=== PATIENT | female | born 1990 | race American Indian/Alaskan Native ===

== ENCOUNTER 2020-02-13 12:15 | Emergency (ER) | payer MEDICAID ==
--- NOTE | 2020-02-13 12:21 | Emergency Department Report ---
Blank Doc - Documentation Documentation: 29-year-old female that presents with depression. Denies any SI/HI. This initial assessment/diagnostic orders/clinical plan/treatment(s) is/are subject to change based on patient's health status, clinical progression and re- assessment by fellow clinical providers in the ED. Further treatment and workup at subsequent clinical providers discretion. Patient/guardians urged not to elope from the ED as their condition may be serious if not clinically assessed and managed. Initial orders include: 1- Patient sent to MAIN ED for further evaluation and treatment 2- earth science faculty member was notified to have patient be brought back [facility]. 3- RN was notified to keep patient as close range and observation until room available
[2020-02-13] MEDS ORDERED: cloNIDine 0.2 MG TAB PO ONE (12:41)
[2020-02-13 12:51] LABS: Basophils # (Auto) 0.1 K/mm3 (0.0-0.1); Basophils % (Auto) 0.7 % (0.0-1.8); Eosinophils % (Auto) 0.1 % (0.0-4.3); Hematocrit 43.2 % (30.3-42.9); Hemoglobin 14.4 gm/dl (10.1-14.3); Lymphocytes # (Auto) 2.2 K/mm3 (1.2-5.4); Lymphocytes % (Auto) 13.8 % (13.4-35.0); Mean Corpuscular HGB Conc 33 % (30-34); Mean Corpuscular Volume 84 fl (79-97); Monocytes # (Auto) 0.9 K/mm3 (0.0-0.8); Monocytes % (Auto) 5.6 % (0.0-7.3); Platelet Count 282 K/mm3 (140-440); Red Blood Count 5.15 M/mm3 (3.65-5.03); Red Cell Distribution Width 14.5 % (13.2-15.2)
--- NOTE | 2020-02-13 12:55 | Emergency Department Report ---
HPI - General Chief Complaint: Psych Time Seen by Provider: 02/13/20 12:21 - HPI HPI: Room 19 Patient is a 29-year-old female present with a chief complaint of sadness. Patient states she has felt intermittently sad for the past 8 years. Patient states her grandmother recently (February 02) and this brought on her current sadness. Patient denies suicidal or homicidal ideation. Patient denies visual or auditory hallucinations. Patient states she has not been sleeping since February 02. Patient states her mother made her come to the hospital for evaluation. Patient states she was on blood pressure medication but stopped taking it secondary to side effects 2 years ago ED Past Medical Hx - Past Medical History Previous Medical History?: Yes Hx Hypertension: Yes - Surgical History Past Surgical History?: Yes Additional Surgical History: tubal ligation - Family History Family history: no significant - Social History Smoking Status: Current Every Day Smoker (1 pack/day) Substance Use Type: None (Denies illicit drug use), Alcohol (Occasional) - Medications Home Medications: Home Medications Medication Instructions Recorded Confirmed Last Taken Type Cyclobenzaprine [Flexeril] 10 mg PO TID PRN #15 tablet 08/07/15 Unknown Rx traMADoL [Ultram] 50 mg PO Q6HR PRN #20 tablet 08/07/15 Unknown Rx amLODIPine 5 mg PO DAILY #90 tab 02/13/20 Unknown Rx ED Review of Systems ROS: Stated complaint: MENTAL BREAKDOWN Other details as noted in HPI Constitutional: no symptoms reported Respiratory: no symptoms reported Endocrine: no symptoms reported Psychiatric: denies: auditory hallucinations, visual hallucinations, homicidal thoughts, suicidal thoughts Physical Exam - Physical Exam Vital Signs: Vital Signs 02/13/20 12:19 Temperature 99.2 F Pulse Rate 107 H Respiratory 18 Rate Blood Pressure 232/113 O2 Sat by Pulse 100 Oximetry Physical Exam: GENERAL: The patient is well-developed well-nourished female sitting on stretcher appearing tearful. [] HEENT: Normocephalic. Atraumatic. Extraocular motions are intact. Patient has moist mucous membranes. NECK: Supple. Trachea midline CHEST/LUNGS: Clear to auscultation. There is no respiratory distress noted. HEART/CARDIOVASCULAR: Regular. There is no tachycardia. There is no gallop rub or murmur. ABDOMEN: Abdomen is soft, nontender. Patient has normal bowel sounds. There is no abdominal distention. SKIN: There is no rash. There is no edema. There is no diaphoresis. NEURO: The patient is awake, alert, and oriented. The patient is cooperative. The patient has no focal neurologic deficits. The patient has normal speech MUSCULOSKELETAL: There is no evidence of acute injury. ED Course Vital Signs 02/13/20 12:19 Temperature 99.2 F Pulse Rate 107 H Respiratory 18 Rate Blood Pressure 232/113 O2 Sat by Pulse 100 Oximetry ED Medical Decision Making - Lab Data Result diagrams: 02/13/20 12:38 02/13/20 12:38 Laboratory Tests 02/13/20 02/13/20 02/13/20 12:38 12:38 12:38 WBC 16.0 H RBC 5.15 H Hgb 14.4 H Hct 43.2 H MCV 84 MCH 28 MCHC 33 RDW 14.5 Plt Count 282 Lymph % (Auto) 13.8 [place] % (Auto) 5.6 Eos % (Auto) 0.1 Baso % (Auto) 0.7 Lymph # (Auto) 2.2 [place] # (Auto) 0.9 H Eos # (Auto) 0.0 Baso # (Auto) 0.1 Seg Neutrophils % 79.8 H Seg Neutrophils # 12.8 H Sodium 137 Potassium 3.8 Chloride 100.7 Carbon Dioxide 26 Anion Gap 14 BUN 12 Creatinine 0.8 Estimated GFR > 60 BUN/Creatinine Ratio 15 Glucose 100 Calcium 9.3 Urine Color Urine Turbidity Urine pH Ur Specific [place] Urine Protein Urine Glucose (UA) Urine Ketones Urine Blood Urine Nitrite Urine Bilirubin Urine Urobilinogen Ur Leukocyte Esterase Urine WBC (Auto) Urine RBC (Auto) U Epithel Cells (Auto) Urine Bacteria (Auto) Urine Mucus Urine HCG, Qual Salicylates < 0.3 L Urine Opiates Screen Urine Methadone Screen Acetaminophen Ur Barbiturates Screen Ur Phencyclidine Scrn Ur Amphetamines Screen U Benzodiazepines Scrn Urine Cocaine Screen U Marijuana (THC) Screen Drugs of Abuse Note Plasma/Serum Alcohol 02/13/20 02/13/20 02/13/20 12:38 12:38 Unknown WBC RBC Hgb Hct MCV MCH MCHC RDW Plt Count Lymph % (Auto) [place] % (Auto) Eos % (Auto) Baso % (Auto) Lymph # (Auto) [place] # (Auto) Eos # (Auto) Baso # (Auto) Seg Neutrophils % Seg Neutrophils # Sodium Potassium Chloride Carbon Dioxide Anion Gap BUN Creatinine Estimated GFR BUN/Creatinine Ratio Glucose Calcium Urine Color Yellow Urine Turbidity Cloudy Urine pH 6.0 Ur Specific [place] 1.021 Urine Protein <15 mg/dl Urine Glucose (UA) Neg Urine Ketones Tr Urine Blood Neg Urine Nitrite Neg Urine Bilirubin Neg Urine Urobilinogen < 2.0 Ur Leukocyte Esterase Lg Urine WBC (Auto) 7.0 H Urine RBC (Auto) 5.0 U Epithel Cells (Auto) 28.0 H Urine Bacteria (Auto) 1+ Urine Mucus 1+ Urine HCG, Qual Negative Salicylates Urine Opiates Screen Urine Methadone Screen Acetaminophen 5.0 L Ur Barbiturates Screen Ur Phencyclidine Scrn Ur Amphetamines Screen U Benzodiazepines Scrn Urine Cocaine Screen U Marijuana (THC) Screen Drugs of Abuse Note Plasma/Serum Alcohol < 0.01 02/13/20 Unknown WBC RBC Hgb Hct MCV MCH MCHC RDW Plt Count Lymph % (Auto) [place] % (Auto) Eos % (Auto) Baso % (Auto) Lymph # (Auto) [place] # (Auto) Eos # (Auto) Baso # (Auto) Seg Neutrophils % Seg Neutrophils # Sodium Potassium Chloride Carbon Dioxide Anion Gap BUN Creatinine Estimated GFR BUN/Creatinine Ratio Glucose Calcium Urine Color Urine Turbidity Urine pH Ur Specific [place] Urine Protein Urine Glucose (UA) Urine Ketones Urine Blood Urine Nitrite Urine Bilirubin Urine Urobilinogen Ur Leukocyte Esterase Urine WBC (Auto) Urine RBC (Auto) U Epithel Cells (Auto) Urine Bacteria (Auto) Urine Mucus Urine HCG, Qual Salicylates Urine Opiates Screen Negative Urine Methadone Screen Negative Acetaminophen Ur Barbiturates Screen Negative Ur Phencyclidine Scrn Negative Ur Amphetamines Screen Negative U Benzodiazepines Scrn Negative Urine Cocaine Screen Negative U Marijuana (THC) Screen Positive Drugs of Abuse Note Disclamer Plasma/Serum Alcohol - Differential Diagnosis Depression, grieving, adjustment disorder, hypertension Critical care attestation.: If time is entered above; I have spent that time in minutes in the direct care of this critically ill patient, excluding procedure time. ED Disposition Clinical Impression: Hypertension, Grieving Disposition: DC-01 TO HOME OR SELFCARE Is pt being admited?: No Does the pt Need Aspirin: No Condition: Stable Instructions: Hypertension (ED) Additional Instructions: Return to the emergency department should you develop worsening symptoms, inability to tolerate food or liquids, high fever or any other concerns Prescriptions: amLODIPine 5 mg PO DAILY #90 tab Referrals: JOSSELIN LEIVA MD [Staff Physician] - 3-5 Days (Dr. Leiva is a primary physician. Please follow-up with him to be established as a patient) Time of Disposition: 15:57
[2020-02-13 13:11] LABS: BUN/Creatinine Ratio 15; Blood Urea Nitrogen 12 mg/dL (7-17); Calcium 9.3 mg/dL (8.4-10.2); Hemolysis Index 23
[2020-02-13 13:27] LABS: Amphetamine Screen,Urine Negative; Benzodiazepines Screen,Urine Negative; Cocaine Screen,Urine Negative; Methadone Screen,Urine Negative; Opiate Screen,Urine Negative
[2020-02-13 13:39] LABS: Cannabinoid Screen,Urine Positive
[2020-02-13 13:57] LABS: Bacteria,Urine 1+ /HPF (Negative); Bilirubin,Urine NEG (Negative); Blood,Urine NEG (Negative); Color,Urine Yellow (Yellow); Mucus,Urine 1+ /HPF; Protein,Urine <15 mg/dL mg/dL (Negative); Urobilinogen,Urine < 2.0 mg/dL (<2.0)
[2020-02-13 13:59] LABS: HCG Qualitative,Urine Negative (Negative)
[2020-02-13 16:19] VITALS: BP 177/96
== END 2020-02-13 16:19 | disposition home or self-care (01) ==
LOC: ED 12:15
DX: F43.21 Adjustment disorder with depressed mood (principal); I10 Essential (primary) hypertension; F17.200 Nicotine dependence, unspecified, uncomplicated; Z98.51 Tubal ligation status; Z79.899 Other long term (current) drug therapy
CPT/HCPCS: 36415; 80048; 80307; 80320; 81001; 81025; 85025; G0480

== ENCOUNTER 2021-12-28 08:12 | Emergency (ER) | payer SELFPAY ==
--- NOTE | 2021-12-28 10:14 | Emergency Department Report ---
ED General Adult HPI - General Chief complaint: Psych Stated complaint: MENTAL BREAKDOWN PUI?: No Time Seen by Provider: 12/28/21 09:38 Source: patient Mode of arrival: Ambulatory Limitations: No Limitations - History of Present Illness Initial comments: This is a 36-year-old female with a past medical history of paranoia, depression who presents with her mother today complaining of having a mental breakdown. Patient's mother states she has been very paranoid stating that the police is out to get her and someone is out to get her. Mom states she is a scattered thought and she is speaking in a scattered manner. Patient denies any suicidal ideation today but states she had thoughts of hurting herself in the past with no plan of action. Patient states that she just needs a medication but cannot recall what medication she is taking. Patient states that she was taking metronidazole for depression. It is unclear if patient knows of medication she is taking. Per medical history last time patient was here was about 2 years ago with the same complaints of having a mental breakdown. Severity scale (0 -10): 0 - Related Data Previous Rx's Medication Instructions Recorded Last Taken Type Cyclobenzaprine [Flexeril] 10 mg PO TID PRN #15 tablet 08/07/15 Unknown Rx traMADoL [Ultram] 50 mg PO Q6HR PRN #20 tablet 08/07/15 Unknown Rx amLODIPine 5 mg PO DAILY #90 tab 02/13/20 Unknown Rx Allergies Allergy/AdvReac Type Severity Reaction Status Date / Time No Known Allergies Allergy Verified 12/28/21 08:31 ED Review of Systems ROS: Stated complaint: MENTAL BREAKDOWN Other details as noted in HPI Comment: All other systems reviewed and negative ED Past Medical Hx - Past Medical History Hx Hypertension: Yes - Surgical History Additional Surgical History: tubal ligation - Social History Smoking Status: Current Every Day Smoker (1 pack/day) Substance Use Type: None (Denies illicit drug use), Alcohol (Occasional) - Medications Home Medications: Home Medications Medication Instructions Recorded Confirmed Last Taken Type Cyclobenzaprine [Flexeril] 10 mg PO TID PRN #15 tablet 08/07/15 Unknown Rx traMADoL [Ultram] 50 mg PO Q6HR PRN #20 tablet 08/07/15 Unknown Rx amLODIPine 5 mg PO DAILY #90 tab 02/13/20 Unknown Rx ED Physical Exam - General Limitations: No Limitations General appearance: alert, in no apparent distress - Head Head exam: Present: atraumatic, normocephalic - Eye Eye exam: Present: normal appearance, PERRL - ENT ENT exam: Present: mucous membranes moist - Neck Neck exam: Present: normal inspection - Respiratory Respiratory exam: Present: normal lung sounds bilaterally. Absent: respiratory distress - Cardiovascular Cardiovascular Exam: Present: regular rate, normal rhythm. Absent: systolic murmur, diastolic murmur, rubs, gallop - GI/Abdominal GI/Abdominal exam: Present: soft, normal bowel sounds - Extremities Exam Extremities exam: Present: normal inspection - Back Exam Back exam: Present: normal inspection - Neurological Exam Neurological exam: Present: alert, oriented X3 - Psychiatric Psychiatric exam: Present: normal affect, normal mood - Skin Skin exam: Present: warm, dry, intact, normal color. Absent: rash ED Course Vital Signs 12/28/21 08:24 Temperature 97.3 F L Pulse Rate 120 H Blood Pressure 153/90 [Right] O2 Sat by Pulse 97 Oximetry ED Medical Decision Making - Lab Data Result diagrams: 12/28/21 11:16 12/28/21 11:16 - Medical Decision Making 31-year-old female presents with paranoia and depression. All labs collected. Patient has leukocytosis. Vital signs are normal. Urinalysis pending. Mental health evaluation/assessment completed and recommending to continue inpatient care. Charge nurse notified. 1013 order set activated. Patient was transferred to the main ED psych . At this time patient is seen and evaluated. Vital signs are normal. Critical care attestation.: If time is entered above; I have spent that time in minutes in the direct care of this critically ill patient, excluding procedure time. ED Disposition Clinical Impression: Paranoid disorder, Suicidal behavior Disposition: 02 SHORT TERM HOSPITAL Is pt being admited?: No Does the pt Need Aspirin: No Referrals: PRIMARY CARE, [Primary Care Provider] - 3-5 Days
[2021-12-28 12:10] LABS: Alanine Aminotransferase 14 units/L (7-56); Albumin 5.6 g/dL (3.9-5); BUN/Creatinine Ratio 11; Blood Urea Nitrogen 11 mg/dL (7-17); Calcium 10.3 mg/dL (8.4-10.2); Hemolysis Index 27
[2021-12-28 12:31] LABS: Basophils # (Auto) 0.1 K/mm3 (0.0-0.1); Basophils % (Auto) 0.5 % (0.0-1.8); Eosinophils % (Auto) 0.1 % (0.0-4.3); Lymphocytes # (Auto) 2.7 K/mm3 (1.2-5.4); Lymphocytes % (Auto) 15.4 % (13.4-35.0); Mean Corpuscular HGB Conc 33 % (30-34); Mean Corpuscular Volume 84 fl (79-97); Monocytes # (Auto) 1.3 K/mm3 (0.0-0.8); Monocytes % (Auto) 7.4 % (0.0-7.3); Platelet Count 329 K/mm3 (140-440); Red Blood Count 6.19 M/mm3 (3.65-5.03); Red Cell Distribution Width 14.7 % (13.2-15.2)
[2021-12-28] MEDS ORDERED: LORazepam 1 MG TAB PO ONE (22:31)
[2021-12-28] MEDS ORDERED: METOPROLOL TARTRATE 50 MG TAB PO ONE (22:31)
[2021-12-28 23:10] LABS: Amphetamine Screen,Urine PRESUMPTIVE NEGATIVE; Benzodiazepines Screen,Urine PRESUMPTIVE NEGATIVE; Cannabinoid Screen,Urine PRESUMPTIVE POSITIVE; Cocaine Screen,Urine PRESUMPTIVE NEGATIVE; Methadone Screen,Urine PRESUMPTIVE NEGATIVE; Opiate Screen,Urine PRESUMPTIVE NEGATIVE
[2021-12-28 23:16] LABS: Color,Urine Yellow (Yellow)
[2021-12-28 23:20] LABS: Bacteria,Urine 1+ /HPF (Negative); Mucus,Urine FEW /HPF
--- NOTE | 2021-12-29 07:22 | Event Note ---
Date: 12/29/21 S: No events reported overnight O: Vital Signs - 8 hr 12/29/21 03:49 Temperature 98.8 F Pulse Rate 94 H Respiratory 18 Rate Blood Pressure 157/83 [Left] O2 Sat by Pulse 100 Oximetry E: Paranoid disorder, suicidal behavior P: 213/awaiting psych eval
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
[2021-12-29] MEDS ORDERED: FLUoxetine 10 MG TAB PO SCH (11:00)
[2021-12-29] MEDS ORDERED: ARIPiprazole 5 MG TAB PO SCH (11:00)
[2021-12-29] MEDS: SULFAMETHOXAZOLE/TRIMETHOPRIM 800/160MG DS TAB PO SCH ×2 (13:26→22:17)
[2021-12-29] MEDS: traZODone 50 MG TAB PO SCH (22:17)
--- NOTE | 2021-12-30 09:47 | Progress Note ---
Subjective - Reason for Consult Consult date: 12/30/21 Reason for consult: major depressive disorder - Chief Complaint Chief complaint: The patient was seen today. She is irritable and requesting to be in another room away from people. She is guarded. She seems quite delusional. She takes a few minutes before she actually starts speaking. The patient is telling me she doesn't remember talking to me and no one is giving her any meds. She denies speaking to me or telling me anything yesterday. The nurse has ensured me the patient is getting her meds. She denies SI/HI, although her mother states that the patient has made several statements about ending her life. The patient says "If I get my meds, I'm able to sustain." She then says "where am I and why am I back here with all these old people. When did I get back here. I want out of here." Security then placed the patient in seclusion. REVIEW OF SYSTEMS Unable to assess MENTAL STATUS EXAMINATION General Appearance and Behavior: Age appropriate, evasive, not forthcoming Diagnoses: Major Depressive Disorder Treatment Plan 1013 Increase Prozac 20mg po daily Increase Abilify 10mg po daily Trazodone 50mg po qhs Medical: per primary Disposition: Recommend acute psychiatric inpatient treatment Will follow. Thanks Case staffed with Dr. Burk Mental Status Exam - Vital signs Last Vital Signs Temp 99.0 F 12/29/21 20:53 Pulse 100 H 12/29/21 20:53 Resp 18 12/29/21 20:53 BP 169/102 12/29/21 20:53 Pulse Ox 100 12/29/21 20:53
[2021-12-30] MEDS: SULFAMETHOXAZOLE/TRIMETHOPRIM 800/160MG DS TAB PO SCH ×2 (10:41→21:43)
[2021-12-30] MEDS: ARIPiprazole 10 MG TAB PO SCH (10:41)
[2021-12-30] MEDS: FLUoxetine 20 MG CAP PO SCH (10:42)
--- NOTE | 2021-12-30 11:57 | Event Note ---
Date: 12/30/21 S: No events reported overnight O: Vital Signs - 8 hr 12/30/21 12/30/21 11:04 11:05 Temperature 98.6 F Pulse Rate 89 Respiratory 18 Rate Blood Pressure 156/83 [Left] O2 Sat by Pulse 99 99 Oximetry A: Major depressive disorder P: 1013/awaiting inpatient psych
[2021-12-30] MEDS: traZODone 50 MG TAB PO SCH (21:43)
[2021-12-30] MEDS ORDERED: METOPROLOL TARTRATE 50 MG TAB PO ONE (22:08)
[2021-12-30] MEDS ORDERED: ACETAMINOPHEN 325 MG TAB PO ONE (22:08)
[2021-12-31 08:42] VITALS: BP 176/95
--- NOTE | 2021-12-31 08:44 | Progress Note ---
Subjective - Reason for Consult Consult date: 12/31/21 Reason for consult: depression - Chief Complaint Chief complaint: The patient was seen today. She is much better today. She says "actually I feel pretty good." She is calm and cooperative. She says she feels "more stable and in a better mood." She denies SI/HI or hallucinations of any kind. REVIEW OF SYSTEMS Constitutional: Negative for weight loss ENT: Negative for stridor Respiratory: Negative for cough or hemoptysis All other systems reviewed and are negative MENTAL STATUS EXAMINATION General Appearance and Behavior: Age appropriate, wearing appropriate clothes, cooperative, polite with questioning, good eye contact Cooperation: cooperative Psychomotor Behavior: Psychomotor normal Mood: pretty good Affect and affective range: congruent with stated affect Thought Process: Goal directed Thought Content: Reality oriented Speech: Normal volume, Regular rate and rhythm Suicidal Ideation: Denies Homicidal Ideation: Denies Hallucination: Denies Delusions: Denies Impulse Control: Limited Insight and Judgment: Limited Memory: Intact Attention:attentive Orientation: Alert and oriented Diagnoses: Major Depressive Disorder Treatment Plan d/c 1013 Prozac 20mg po daily Abilify 10mg po daily 50mg po qhs Medical: per primary Disposition: Do not Recommend acute psychiatric inpatient treatment. The patient understands that if SI/HI or any fear of endangerment arise she is to seek immediate assistance. Will sign off. Thanks Case staffed with Dr. Burk Mental Status Exam - Vital signs Last Vital Signs Temp 98.6 F 12/31/21 08:41 Pulse 98 H 12/31/21 08:41 Resp 18 12/31/21 08:41 BP 176/95 12/31/21 08:41 Pulse Ox 100 12/31/21 08:42
[2021-12-31] MEDS: FLUoxetine 20 MG CAP PO SCH (10:00)
[2021-12-31] MEDS: ARIPiprazole 10 MG TAB PO SCH (10:00)
[2021-12-31] MEDS: SULFAMETHOXAZOLE/TRIMETHOPRIM 800/160MG DS TAB PO SCH (10:00)
--- NOTE | 2021-12-31 12:56 | Event Note ---
Date: 12/31/21 Psychiatric team have recommended discontinuation of 1013. Nursing team reports no acute issues. Urinalysis contaminated. Urine culture negative. Leukocytosis likely a stress reaction. Elevated blood pressure chronic. Has been prescribed Norvasc in the past. Patient medically cleared on her initial ER evaluation. Laboratory studies vital signs, nursing and psychiatric documentation as well as ER documentation reviewed and appreciated. To be discharged with outpatient follow-up Vital Signs 12/28/21 12/28/21 12/28/21 08:24 20:37 22:03 Temperature 97.3 F L 98.5 F Pulse Rate 120 H 109 H Respiratory 16 Rate Blood Pressure Blood Pressure [Left] Blood Pressure 153/90 163/115 [Right] O2 Sat by Pulse 97 96 98 Oximetry 12/28/21 12/29/21 12/29/21 22:40 03:49 10:01 Temperature 98.8 F 97.8 F Pulse Rate 109 H 94 H 106 H Respiratory 18 18 Rate Blood Pressure 163/115 Blood Pressure 157/83 161/97 [Left] Blood Pressure [Right] O2 Sat by Pulse 100 98 Oximetry 12/29/21 12/29/21 12/30/21 10:02 20:53 11:04 Temperature 99.0 F 98.6 F Pulse Rate 100 H 89 Respiratory 18 18 Rate Blood Pressure Blood Pressure 169/102 156/83 [Left] Blood Pressure [Right] O2 Sat by Pulse 98 100 99 Oximetry 12/30/21 12/30/21 12/30/21 11:05 22:02 22:44 Temperature 100 F H Pulse Rate 104 H 104 H Respiratory 16 Rate Blood Pressure 153/103 Blood Pressure 153/103 [Left] Blood Pressure [Right] O2 Sat by Pulse 99 98 Oximetry 12/31/21 12/31/21 08:41 08:42 Temperature 98.6 F Pulse Rate 98 H Respiratory 18 Rate Blood Pressure Blood Pressure 176/95 [Left] Blood Pressure [Right] O2 Sat by Pulse 100 100 Oximetry Lab Results 12/28/21 12/28/21 12/28/21 Range/Units 11:16 11:16 11:16 WBC 17.6 H (4.5-11.0) K/mm3 RBC 6.19 H (3.65-5.03) M/mm3 Hgb 17.0 H (10.1-14.3) gm/dl Hct 52.0 H (30.3-42.9) % MCV 84 (79-97) fl MCH 28 (28-32) pg MCHC 33 (30-34) % RDW 14.7 (13.2-15.2) % Plt Count 329 (140-440) K/mm3 Lymph % (Auto) 15.4 (13.4-35.0) % Ware % (Auto) 7.4 H (0.0-7.3) % Eos % (Auto) 0.1 (0.0-4.3) % Baso % (Auto) 0.5 (0.0-1.8) % Lymph # (Auto) 2.7 (1.2-5.4) K/mm3 Ware # (Auto) 1.3 H (0.0-0.8) K/mm3 Eos # (Auto) 0.0 (0.0-0.4) K/mm3 Baso # (Auto) 0.1 (0.0-0.1) K/mm3 Seg Neutrophils % 76.6 H (40.0-70.0) % Seg Neutrophils # 13.5 H (1.8-7.7) K/mm3 Sodium 139 (137-145) mmol/L Potassium 4.2 (3.6-5.0) mmol/L Chloride 98.6 (98-107) mmol/L Carbon Dioxide 25 (22-30) mmol/L Anion Gap 20 mmol/L BUN 11 (7-17) mg/dL Creatinine 1.0 (0.6-1.2) mg/dL Estimated GFR > 60 ml/min BUN/Creatinine Ratio 11 % Glucose 104 H (65-100) mg/dL Calcium 10.3 H (8.4-10.2) mg/dL Total Bilirubin 0.30 (0.1-1.2) mg/dL AST 17 (5-40) units/L ALT 14 (7-56) units/L Alkaline Phosphatase 71 (35-129) units/L Total Protein 8.4 H (6.3-8.2) g/dL Albumin 5.6 H (3.9-5) g/dL Albumin/Globulin Ratio 2.0 % HCG, Quant (0-4) mIU/mL Urine Color (Yellow) Urine Turbidity (Clear) Specific [place] (Man) (1.003-1.030) Ur Protein (Man) (Negative) mg/dL Ur Ketones (Man) (Negative) Ur Nitrite (Man) (Negative) Urine Bilirubin (Man) (Negative) Leukocyte Esterase (Man) (Negative) Urine WBC (Auto) (0.0-6.0) /HPF Urine RBC (Auto) (0.0-6.0) /HPF U Epithel Cells (Auto) (0-13.0) /HPF Urine Bacteria (Auto) (Negative) /HPF Urine RBC (Manual) (Negative) Urine Mucus /HPF Urine Yeast (Budding) /HPF Salicylates < 0.3 L (2.8-20.0) mg/dL Urine Opiates Screen Urine Methadone Screen Acetaminophen (10.0-30.0) ug/mL Ur Barbiturates Screen Ur Phencyclidine Scrn Ur Amphetamines Screen U Benzodiazepines Scrn Urine Cocaine Screen U Marijuana (THC) Screen Drugs of Abuse Note SARS-CoV-2 (PCR) (Negative) 12/28/21 12/28/21 12/28/21 Range/Units 11:16 11:16 22:54 WBC (4.5-11.0) K/mm3 RBC (3.65-5.03) M/mm3 Hgb (10.1-14.3) gm/dl Hct (30.3-42.9) % MCV (79-97) fl MCH (28-32) pg MCHC (30-34) % RDW (13.2-15.2) % Plt Count (140-440) K/mm3 Lymph % (Auto) (13.4-35.0) % Ware % (Auto) (0.0-7.3) % Eos % (Auto) (0.0-4.3) % Baso % (Auto) (0.0-1.8) % Lymph # (Auto) (1.2-5.4) K/mm3 Ware # (Auto) (0.0-0.8) K/mm3 Eos # (Auto) (0.0-0.4) K/mm3 Baso # (Auto) (0.0-0.1) K/mm3 Seg Neutrophils % (40.0-70.0) % Seg Neutrophils # (1.8-7.7) K/mm3 Sodium (137-145) mmol/L Potassium (3.6-5.0) mmol/L Chloride (98-107) mmol/L Carbon Dioxide (22-30) mmol/L Anion Gap mmol/L BUN (7-17) mg/dL Creatinine (0.6-1.2) mg/dL Estimated GFR ml/min BUN/Creatinine Ratio % Glucose (65-100) mg/dL Calcium (8.4-10.2) mg/dL Total Bilirubin (0.1-1.2) mg/dL AST (5-40) units/L ALT (7-56) units/L Alkaline Phosphatase (35-129) units/L Total Protein (6.3-8.2) g/dL Albumin (3.9-5) g/dL Albumin/Globulin Ratio % HCG, Quant < 2 (0-4) mIU/mL Urine Color Yellow (Yellow) Urine Turbidity Hazy (Clear) Specific [place] (Man) 1.015 (1.003-1.030) Ur Protein (Man) 2+ (Negative) mg/dL Ur Ketones (Man) Negative (Negative) Ur Nitrite (Man) Negative (Negative) Urine Bilirubin (Man) Negative (Negative) Leukocyte Esterase (Man) Negative (Negative) Urine WBC (Auto) 46.0 H (0.0-6.0) /HPF Urine RBC (Auto) 54.0 (0.0-6.0) /HPF U Epithel Cells (Auto) 14.0 H (0-13.0) /HPF Urine Bacteria (Auto) 1+ (Negative) /HPF Urine RBC (Manual) 1+ (Negative) Urine Mucus Few /HPF Urine Yeast (Budding) 1+ /HPF Salicylates (2.8-20.0) mg/dL Urine Opiates Screen Urine Methadone Screen Acetaminophen 5.0 L (10.0-30.0) ug/mL Ur Barbiturates Screen Ur Phencyclidine Scrn Ur Amphetamines Screen U Benzodiazepines Scrn Urine Cocaine Screen U Marijuana (THC) Screen Drugs of Abuse Note SARS-CoV-2 (PCR) (Negative) 12/28/21 12/29/21 Range/Units 22:54 08:48 WBC (4.5-11.0) K/mm3 RBC (3.65-5.03) M/mm3 Hgb (10.1-14.3) gm/dl Hct (30.3-42.9) % MCV (79-97) fl MCH (28-32) pg MCHC (30-34) % RDW (13.2-15.2) % Plt Count (140-440) K/mm3 Lymph % (Auto) (13.4-35.0) % Ware % (Auto) (0.0-7.3) % Eos % (Auto) (0.0-4.3) % Baso % (Auto) (0.0-1.8) % Lymph # (Auto) (1.2-5.4) K/mm3 Ware # (Auto) (0.0-0.8) K/mm3 Eos # (Auto) (0.0-0.4) K/mm3 Baso # (Auto) (0.0-0.1) K/mm3 Seg Neutrophils % (40.0-70.0) % Seg Neutrophils # (1.8-7.7) K/mm3 Sodium (137-145) mmol/L Potassium (3.6-5.0) mmol/L Chloride (98-107) mmol/L Carbon Dioxide (22-30) mmol/L Anion Gap mmol/L BUN (7-17) mg/dL Creatinine (0.6-1.2) mg/dL Estimated GFR ml/min BUN/Creatinine Ratio % Glucose (65-100) mg/dL Calcium (8.4-10.2) mg/dL Total Bilirubin (0.1-1.2) mg/dL AST (5-40) units/L ALT (7-56) units/L Alkaline Phosphatase (35-129) units/L Total Protein (6.3-8.2) g/dL Albumin (3.9-5) g/dL Albumin/Globulin Ratio % HCG, Quant (0-4) mIU/mL Urine Color (Yellow) Urine Turbidity (Clear) Specific [place] (Man) (1.003-1.030) Ur Protein (Man) (Negative) mg/dL Ur Ketones (Man) (Negative) Ur Nitrite (Man) (Negative) Urine Bilirubin (Man) (Negative) Leukocyte Esterase (Man) (Negative) Urine WBC (Auto) (0.0-6.0) /HPF Urine RBC (Auto) (0.0-6.0) /HPF U Epithel Cells (Auto) (0-13.0) /HPF Urine Bacteria (Auto) (Negative) /HPF Urine RBC (Manual) (Negative) Urine Mucus /HPF Urine Yeast (Budding) /HPF Salicylates (2.8-20.0) mg/dL Urine Opiates Screen Presumptive negative Urine Methadone Screen Presumptive negative Acetaminophen (10.0-30.0) ug/mL Ur Barbiturates Screen Presumptive negative Ur Phencyclidine Scrn Presumptive negative Ur Amphetamines Screen Presumptive negative U Benzodiazepines Scrn Presumptive negative Urine Cocaine Screen Presumptive negative U Marijuana (THC) Screen Presumptive positive Drugs of Abuse Note Disclamer SARS-CoV-2 (PCR) Negative (Negative)
== END 2021-12-31 13:33 | disposition home or self-care (01) ==
LOC: ED 08:12
DX: F60.0 Paranoid personality disorder (principal); R45.851 Suicidal ideations; Z20.822 Contact with and (suspected) exposure to COVID-19; I10 Essential (primary) hypertension; F17.210 Nicotine dependence, cigarettes, uncomplicated; Z79.899 Other long term (current) drug therapy; Z98.51 Tubal ligation status; Z72.89 Other problems related to lifestyle
CPT/HCPCS: 36415; 80053; 80307; 80320; 81001; 84702; 85025; 87086; 99284; G0480; U0003

== ENCOUNTER 2022-01-03 05:07 | Emergency (ER) | payer SELFPAY ==
[2022-01-03 05:50] VITALS: BP 165/102
== END 2022-01-03 11:18 | disposition left against medical advice (07) ==
LOC: ED 05:07
DX: R53.1 Weakness (principal); Z53.21 Procedure and treatment not carried out due to patient leaving prior to being seen by health care provider